=== PATIENT | female | born 1965 | race Caucasian/White ===

== ENCOUNTER 2024-06-23 11:50 | Day surgery (SDC) | payer OTHER ==
[~2024-06-23] VITALS: Ht 167.6 cm; Wt 59.0 kg
[2024-06-23] VITALS (15 sets, daily range): BP systolic 114–152; BP diastolic 69–95
[~2024-06-23 11:50] MED LIST: ACET500 PO; ASCO500 PO; CeFAZolin Sodium 2,000 MG in NS 100 ML IV SCH; Dexamethasone Sod Phos 10 MG/ML 1ML VIAL ONE; FentaNYL Citrate 50 MCG/ML 5 ML Injection ONE; IBUP800 PO; Ketorolac Tromethamine 30mg Vial ONE; Lactated Ringer's 1,000 ML IV SCH; Ondansetron HCl 2 MG / ML 2ML Vial ONE; PRAV20 PO; Rocuronium Bromide 10 MG/ML 5ML Injection IV ONE; Sugammadex Sodium 200 MG/2ML SDV (100 MG/ML) ONE; THERA-D2000 UNIT PO; ZINC15 PO; propofoL 20 ML IV ONE
[2024-06-23] MEDS ORDERED: CeFAZolin Sodium 2,000 MG VIAL ONE (12:01)
--- NOTE | 2024-06-23 12:32 | NUR ---
History, Chart, Medications and Allergies reviewed before start of procedure. Lungs clear T/O to Auscultation. Pre-Op teaching done. Pt verbalizes understanding. Patient reports completing Chlorhexadine shower X1 prior to admission to hospital. Patient confirms NPO status and agrees with scheduled surgery.
[2024-06-23] MEDS ORDERED: Bupivacaine 0.5% HCl 5 MG/ML 30MLVIAL ONE (12:38)
[2024-06-23] MEDS ORDERED: HYDROmorphone HCl/Pf 1MG SYR ONE (15:05)
[2024-06-23] MEDS ORDERED: FLU VACC TS2024-25(6MOS UP)/PF 45 MCG/0.5 ML SYRINGE IM SCH (16:35)
[2024-06-23] MEDS ORDERED: Simethicone 80 MG Chew PO PRN (16:35)
[2024-06-23] MEDS ORDERED: Lactated Ringer's 1,000 ML IV SCH (16:35)
[2024-06-23] MEDS ORDERED: Naloxone HCl 0.4MG / ML 1ML Vial IV PRN (16:35)
[2024-06-23] MEDS ORDERED: Promethazine HCl 12.5 MG Supp PR PRN (16:40)
[2024-06-23] MEDS ORDERED: Ondansetron 4 MG TAB PO PRN (16:40)
[2024-06-23] MEDS ORDERED: OxyCODONE 5 mg/Acetamin 325 mg TABLET PO PRN (16:40)
[2024-06-23] MEDS ORDERED: Promethazine HCl 25 MG Tab PO PRN (16:40)
[2024-06-23] MEDS ORDERED: Ondansetron HCl 2 MG / ML 2ML Vial IV PRN (16:40)
[2024-06-23] MEDS ORDERED: HYDROmorphone HCl/Pf 1MG SYR IV PRN (16:45)
[2024-06-23] MEDS ORDERED: Ketorolac Tromethamine 30mg Vial IV PRN (16:45)
[2024-06-23] MEDS ORDERED: CeFAZolin Sodium 2,000 MG in NS 100 ML IV SCH (19:45)
[2024-06-23] MEDS ORDERED: Pravastatin Sodium 20 MG Tab PO SCH (21:00)
[2024-06-24 01:50] VITALS: BP 156/92
--- NOTE | 2024-06-24 04:08 | NUR ---
SHIFT SUMMARY POD1 TOTAL MARGARET LAP HYSTER. X4 LAP ARE C/D/I. MILD/LIGHT VAGINAL BLEEDING NOTED T/O THE NIGHT. VSS, BP NOTED TO BE ELEVATED AND MILD TACHYCARDIA NOTED. PT REPORTS INTERMITTENT PALPITATIONS AROUND 0200 THAT HAVE SUBSIDED THIS AM. PT REPORTS OVERALL FEELING BETTER THIS AM, NAUSEA HAS SUBSISDED AND PAIN IS TOLLERABLE. PT HAS BEEN MEDICATED FOR PAIN WITH NORCO AND TORADOL, AND SIMETHACONE FOR GAS PAIN. PT DENIES PASSING FLATTUS. ONE VOID NOTED T/O THE NIGHT, IVF INUSING AND PO INTAKE ENCOURAGED. PT TOLLERATED LITTLE PO INTAKE T/O THE NIGHT, SHE HAS SLEPT FOR MOST OF IT. OTHERWISE, NO ACUTE EVENTS NOTED T/O THE NIGHT. PLAN FOR D/C HOME TODAY
[2024-06-24 04:10] VITALS: BP 124/67
[2024-06-24 04:43] LABS: BASOPHILS ABSOLUTE AUTO 0.02 K/mm3 (0.00-0.23); BASOPHILS PERCENT AUTO 0 % (0-2); EOSINOPHILS PERCENT AUTO 0 % (0-6); Hematocrit 37.7 % (33.0-51.0); Hemoglobin 12.9 g/dL (11.5-16.0); IMMATURE GRAN ABSOLUTE AUTO 0.09 K/mm3 (0.00-0.10); IMMATURE GRAN PERCENT AUTO 1 % (0-1); LYMPHOCYTES ABSOLUTE AUTO 1.29 K/mm3 (0.84-5.20); LYMPHOCYTES PERCENT AUTO 8 % (21-46); MONOCYTES ABSOLUTE AUTO 0.67 K/mm3 (0.16-1.47); MONOCYTES PERCENT AUTO 4 % (4-13); Mean Corpuscular HGB 30.1 pg (26.0-34.0); Mean Corpuscular HGB Conc 34.2 g/dL (31.5-36.5); Mean Corpuscular Volume 88 fL (80-100); Mean Platelet Volume 9.1 fL (9.1-12.4); NEUTROPHILS ABSOLUTE AUTO 13.43 K/mm3 (1.96-9.15); NEUTROPHILS PERCENT AUTO 87 % (41-73); Platelet Count 270 K/mm3 (150-400); RDW Coefficient Variation 11.9 % (11.7-14.2); RDW Standard Deviation 38.3 fL (35.1-46.3); Red Blood Cell Count 4.29 M/mm3 (3.80-5.20)
[2024-06-24 07:20] VITALS: BP 123/85
[2024-06-24] MEDS ORDERED: Ascorbic Acid 500 MG Tab PO SCH (09:00)
[2024-06-24] MEDS ORDERED: Misc. Tablet PO SCH (09:00)
[2024-06-24] MEDS ORDERED: Cholecalciferol 1000 Unit Tablet (=25MCG) PO SCH (09:00)
[2024-06-24] MEDS ORDERED: Percocet 5-3251 EACH PO (10:28)
[2024-06-24] MEDS ORDERED: SIME80CH PO (10:29)
[2024-06-24] MEDS ORDERED: PROM25 PO (10:29)
--- NOTE | 2024-06-24 11:03 | NUR ---
SHIFT SUMMARY AND DISCHARGE PATIENT ALERT AND INTERACTIVE. PATIENT ABLE TO AMBULATE INDEPENDENTLY IN THE ROOM AND MAKE NEEDS KNOWN. PATIENT HAVING SOME SORENESS OF ABD AREA. PATIENT DECLINING PAIN MEDS EXCEPT TORADOL AT THIS TIME. INCISIONS CLOSED WITH GLUE. DR BIRD IN TO SEE PATIENT AND DISCHARGE ORDERS PLACED. DISCHARGE INSTRUCTIONS REVIEWED WITH PATIENT. IV REMOVED. ROOM CHECK DONE BEFORE DEPARTURE, PATIENT TAKEN OUT VIA WHEELCHAIR. PRESENT TO TAKE PATIENT HOME.
== END 2024-06-24 10:57 | disposition home or self-care (01) ==
LOC: ORSCMMR 11:50 → ORD 13:30 → SURS 16:59 → ORSCMMR 06-24 10:57
PROVIDERS: Obstetrics & Gynecology
PROC: 0UT7FZZ Resection of Bilateral Fallopian Tubes, Via Natural or Artificial Opening With Percutaneous Endoscopic Assistance (ICD-10-PCS; principal; 2024-06-23 13:30)
PROC: 0UT9FZZ Resection of Uterus, Via Natural or Artificial Opening With Percutaneous Endoscopic Assistance (ICD-10-PCS; principal; 2024-06-23 13:30)
PROC: 0UT2FZZ Resection of Bilateral Ovaries, Via Natural or Artificial Opening With Percutaneous Endoscopic Assistance (ICD-10-PCS; principal; 2024-06-23 13:30)
PROC: 0U5F4ZZ Destruction of Cul-de-sac, Percutaneous Endoscopic Approach (ICD-10-PCS; principal; 2024-06-23 13:30)
DX: D06.0 Carcinoma in situ of endocervix (principal); D25.9 Leiomyoma of uterus, unspecified; N83.292 Other ovarian cyst, left side; N83.291 Other ovarian cyst, right side; N94.89 Other specified conditions associated with female genital organs and menstrual cycle; N73.6 Female pelvic peritoneal adhesions (postinfective); E78.00 Pure hypercholesterolemia, unspecified; Z79.899 Other long term (current) drug therapy
CPT/HCPCS: 36415; 85025; 86850; 86900; 86901; 88305; 88307; A9270; J0690; J1100; J1171; J1885; J2405; J2704; J3010; J7120